=== PATIENT | born 1965 | race Caucasian/White ===

== ENCOUNTER → 2025-07-29 10:37 | Outpatient (BNVA) | payer MEDICAID, SELFPAY | PROVIDERS: Referring Provider Urology; Visit Provider Internal Medicine | DX: E29.1 Testicular hypofunction (principal); E11.9 Type 2 diabetes mellitus without complications; R79.89 Other specified abnormal findings of blood chemistry | CPT/HCPCS: 99204 ==

== ENCOUNTER → 2025-08-17 08:46 | Outpatient (BNVA) | payer MEDICAID, SELFPAY | PROVIDERS: Visit Provider Internal Medicine | DX: E11.9 Type 2 diabetes mellitus without complications (principal); R79.89 Other specified abnormal findings of blood chemistry | CPT/HCPCS: 80053; 80061; 83001; 83002; 84146; 84403; 84443; 85025 ==